=== PATIENT | female | born 1960 ===

== ENCOUNTER → 2020-02-29 | Outpatient (CLI) | payer OTHER ==
[2020-02-29 14:35] LABS: Basophils # (auto) 0.1 10 ^3/uL (0-0.2); Eosinophils # (auto) 0.2 10 ^3/uL (0-0.8); Hemoglobin 12.2 g/dL (12.2-16.2); Mean Corpuscular Hemoglobin 24.8 pg (28.0-32.0); Monocytes # (auto) 0.4 10 ^3/uL (0-1.3); Monocytes % (auto) 5.3 % (0.0-12.0); White Blood Cell 7.1 10^3/uL (4.4-10.8)
[2020-02-29 14:37] LABS: Basophils % (auto) 0.8 % (0.0-2.0); Eosinophils % (auto) 2.3 % (0.0-7.0); Hematocrit 38.2 % (36.0-46.0); Lymphocytes # (auto) 2.5 10 ^3/uL (0.4-5.4); Lymphocytes % (auto) 34.7 % (10.0-50.0); Mean Corpuscular Volume 77.7 fL (80.0-100.0); Neutrophils % (auto) 56.9 % (37.0-80.0); Nucleated Red Blood Cells % 0.1 %; Platelet Count (auto) 226 10^3/uL (140-450); Red Blood Cells 4.92 10^6/uL (4.0-5.20)
[2020-02-29 14:44] LABS: Red Cell Distribution Width 21.2 % (11.8-14.3)
[2020-02-29 14:46] LABS: Albumin 3.8 g/dL (3.4-5.0); Calcium 10.4 mg/dL (8.5-10.1)
[2020-02-29 14:49] LABS: BUN/Creatinine Ratio 18.4; Bilirubin, Total 0.3 mg/dL (0.2-1.0); Total Protein 7.2 g/dL (6.4-8.2)
[2020-02-29 15:00] LABS: % Iron Saturation 5.7 % (15-50)
[2020-02-29 15:08] LABS: Ferritin 4.9 ng/mL (10-322)
== END | disposition home or self-care (01) ==
LOC: LAB 14:10
PROVIDERS: ATTEND Internal Medicine
DX: D50.9 Iron deficiency anemia, unspecified (principal)
CPT/HCPCS: 36415; 80053; 82607; 82728; 83021; 83540; 83550; 83615; 85025; 85045; 85660; 86880; 86885